=== PATIENT | female | born 1995 | race Caucasian/White ===

== ENCOUNTER 2020-06-25 13:29 | Outpatient (REF) | payer MEDICAID, SELFPAY ==
[2020-06-25 21:03] LABS: HCT 40.4 % (36.0-46.0); HGB 12.6 g/dL (11.2-15.7); MCH 27.4 pg (27.0-33.0); MCHC 31.2 % (32.0-36.0); MCV 87.8 fL (80-95); MPV 11.8 fL (8.0-11.0); Platelet Count 277 10^3/uL (130-400); RDW 14.2 % (11.7-14.6); RDW-SD 45.8 fL; WBC 6.04 10^3/uL (4.4-10.8)
[2020-06-25 21:54] LABS: Anion Gap 6.9 mmol/L (3-11); BUN 13 mg/dL (7-18); CO2 27.1 mmol/L (21.0-32.0); CREATININE 0.76 mg/dL (0.55-1.02); Calcium 9.1 mg/dL (8.5-10.1); Chloride 106 mmol/L (98-107); Glucose 93 mg/dL (74-106); Potassium 4.4 mmol/L (3.5-5.1); Sodium 140 mmol/L (136-145)
[2020-06-25 21:57] LABS: ESR 17 mm/hr (0-20)
[2020-06-25 22:42] LABS: C-Reactive Protein 0.57 mg/dL (0.0-0.3)
[2020-06-27 16:41] LABS: Rheumatoid Factor <8.6 IU/mL (<12.0)
[2020-06-28 11:03] LABS: Lyme Ab w Rflx to Lyme Confirm Negative (Negative)
[2020-06-28 14:06] LABS: ANA Interpretation Negative (Negative)
== END 2020-06-25 13:49 ==
LOC: NCHCN 13:29
PROVIDERS: PCP Nurse Practitioner Family; Visit Provider Nurse Practitioner Family
DX: M79.18 Myalgia, other site (principal); G25.81 Restless legs syndrome; M25.69 Stiffness of other specified joint, not elsewhere classified
CPT/HCPCS: 80048; 85027; 85652; 86038; 86140; 86431; 86618

== ENCOUNTER 2020-12-29 17:57 | Outpatient (REF) | payer MEDICAID, SELFPAY ==
[2020-12-29 21:45] LABS: HCT 37.9 % (36.0-46.0); HGB 12.2 g/dL (11.2-15.7); MCH 27.5 pg (27.0-33.0); MCHC 32.2 % (32.0-36.0); MCV 85.6 fL (80-95); MPV 11.8 fL (8.0-11.0); Platelet Count 271 10^3/uL (130-400); RBC 4.43 10^6/uL (3.93-5.22); RDW 13.6 % (11.7-14.6); RDW-SD 42.8 fL; WBC 7.29 10^3/uL (4.4-10.8)
[2020-12-29 22:24] LABS: Anion Gap 11.4 mmol/L (3-11); BUN 16 mg/dL (7-18); CO2 24.6 mmol/L (21.0-32.0); CREATININE 0.8 mg/dL (0.55-1.02); Calcium 8.6 mg/dL (8.5-10.1); Chloride 107 mmol/L (98-107); Glucose 82 mg/dL (74-106); Sodium 143 mmol/L (136-145); TSH (W/Ref FT4) 1.32 uIU/mL (0.36-3.74)
== END 2020-12-29 17:58 | disposition home or self-care (01) ==
LOC: NCHCN 17:57
PROVIDERS: PCP Nurse Practitioner Family; Visit Provider Nurse Practitioner Family
DX: R00.2 Palpitations (principal)
CPT/HCPCS: 80048; 85027; 84443

== ENCOUNTER 2021-02-14 01:16 | Outpatient (CLI) | payer MEDICAID, SELFPAY ==
--- NOTE | 2021-02-14 | DI.US_ITS ---
Exam(s) US SOFT TISSUE HEAD OR NECK EXAM: US SOFT TISSUE HEAD OR NECK CLINICAL HISTORY: CERVICAL LYMPHADENOPATHY,R59.0,SWALLOWING PROBLEM,R13.10. TECHNIQUE: Ultrasound was performed using standard protocol. COMPARISON: US RENAL ULTRASOUND from 05/22/2013 FINDINGS: Sonographic assessment utilizing grayscale and color Doppler imaging was performed and targeted to th e area of clinical concern. Area of concern is in the left side of the neck where there is apparently an area of pain. There is no evidence of solid or significant cystic lesions in the soft tissues left side of the neck where this patient is apparently complaining of pain. Incidentally noted are multiple small benign colloid cysts in both thyroid lobes. IMPRESSION: 1. No significant mass nor fluid collection in the left side of the neck which is apparently the area of concern. 2. Incidentally noted are multiple small benign colloid cysts in both thyroid lobes. DATA REPOSITORY:
== END 2021-02-14 01:36 ==
PROVIDERS: PCP Nurse Practitioner Family; Visit Provider Nurse Practitioner Family
DX: R59.0 Localized enlarged lymph nodes (principal); R13.19 Other dysphagia; E04.1 Nontoxic single thyroid nodule
CPT/HCPCS: 76536

== ENCOUNTER 2021-02-22 22:05 | Outpatient (REF) | payer MEDICAID, SELFPAY ==
[2021-02-22 22:26] LABS: FREE T4 0.82 ng/dL (0.76-1.46)
[2021-02-25 09:58] LABS: DHEA Sulfate 193 ug/dL (96-512)
[2021-02-26 14:50] LABS: Testosterone, Total 17 ng/dL (8-60)
== END 2021-02-22 22:06 | disposition home or self-care (01) ==
LOC: NCHCN 22:05
PROVIDERS: PCP Nurse Practitioner Family; Visit Provider Nurse Practitioner Family
DX: L65.9 Nonscarring hair loss, unspecified (principal)
CPT/HCPCS: 82627; 84403; 84439; 84481

== ENCOUNTER 2022-08-30 09:26 | Outpatient (REF) | payer MEDICAID, SELFPAY ==
[2022-08-29 21:29] LABS: Abs Immature Grans 0.02 10^3/uL (0.0-0.06); Absolute Basophil Count 0.02 10^3/uL (0.0-0.2); Absolute Eosinophil Count 0.08 10^3/uL (0.0-0.7); Absolute Lymphocyte Count 2.61 10^3/uL (1.2-3.4); Absolute Monocyte Count 0.37 10^3/uL (0.1-0.8); Absolute Neutrophil Count 4.57 10^3/uL (1.2-6.7); Basophils % 0.3; HCT 39.1 % (36.0-46.0); HGB 12.2 g/dL (11.2-15.7); Immature Grans % 0.3; MCH 26.7 pg (27.0-33.0); MCHC 31.2 % (32.0-36.0); MCV 86 fL (80-95); MPV 11.5 fL (8.0-11.0); Monocytes % 4.8; Neutrophils % 59.6; Platelet Count 328 10^3/uL (130-400); RBC 4.57 10^6/uL (3.93-5.22); RDW 13.7 % (11.7-14.6); RDW-SD 42.3 fL; WBC 7.67 10^3/uL (4.4-10.8)
[2022-08-29 21:37] LABS: Iron 70 ug/dL (50-170); Total Iron Binding Capacity 342 ug/dL (250-450); Transferrin Sat 20 % (15-50)
[2022-08-29 22:04] LABS: Ferritin 65 ng/mL (8-252); TSH (W/Ref FT4) 0.74 uIU/mL (0.36-3.74); Vitamin B12 396 pg/mL (193-986)
== END 2022-08-30 09:27 | disposition home or self-care (01) ==
LOC: NCHCN 09:26
PROVIDERS: Visit Provider Nurse Practitioner Family
DX: R51.9 Headache, unspecified (principal); R53.83 Other fatigue; R00.2 Palpitations; M79.7 Fibromyalgia; M25.59 Pain in other specified joint; G25.81 Restless legs syndrome; M54.6 Pain in thoracic spine; R71.8 Other abnormality of red blood cells
CPT/HCPCS: 82607; 82728; 83540; 83550; 84443; 85025

== ENCOUNTER → 2023-04-10 03:14 | Outpatient (CLI) | payer OTHER, SELFPAY ==
--- NOTE | 2023-04-10 | DI.MRI_ITS ---
Exam(s) MR CERVICAL SPINE WO EXAM: MR CERVICAL SPINE WO CLINICAL HISTORY: CHRONIC BACK PAIN, M54.9, SCOLIOSIS, M41.9 TECHNIQUE: Multiplanar multisequence MRI of the cervical spine was performed without intravenous con trast. COMPARISON: No exams were available for comparison FINDINGS: BONES: Vertebral body heights are maintained. The vertebral bodies have a normal appearance. Interv ertebral disc spaces are normal. There is a mild right convex curvature of the cervical spine. There is loss of the normal cervical lordosis. Bone marrow signal intensity is within normal limits. Ther e is a hemangioma in the C3 vertebral body. CERVICAL CORD: Craniovertebral junction is unremarkable. The cervical cord is normal size and signal intensity. SOFT TISSUES: Unremarkable. C2-3: No disc herniation or bulge is identified. No significant central spinal canal or neural forami nal stenosis. C3-4: No disc herniation or bulge is identified. No significant central spinal canal or neural forami nal stenosis C4-5: No disc herniation or bulge is identified. No significant central spinal canal or neural forami nal stenosis C5-6: No disc herniation or bulge is identified. No significant central spinal canal or neural forami nal stenosis C6-7: No disc herniation or bulge is identified. No significant central spinal canal or neural forami nal stenosis C7-T1: No disc herniation or bulge is identified. No significant central spinal canal or neural isaias inal stenosis IMPRESSION: 1. Mild right convex curvature of the cervical spine. 2. No focal disc herniation, central spinal canal or neural foraminal stenosis is seen in the cervica l spine. DATA REPOSITORY:
--- NOTE | 2023-04-10 | DI.MRI_ITS ---
Exam(s) MR THORACIC SPINE WO EXAM: MR THORACIC SPINE WO CLINICAL HISTORY: SCOLIOSIS, CHRONIC BACK PAIN, M41.9, M54.9. TECHNIQUE: Multiplanar multisequence MRI of the Thoracic spine was performed. COMPARISON: CR THORACIC SPINE from 02/25/2013 FINDINGS: Bones: The vertebral body heights are well maintained. There is a mild right convex curvature of the midthoracic spine. The signal characteristics are unremarkable. Cord: The thoracic cord is normal size and signal intensity. No intrinsic cord lesion is present. Discs: No disc herniation or bulge is present. Soft tissues: Normal. Disc levels: No disc herniation or bulge is identified. No central spinal canal or neural foraminal stenosis. IMPRESSION: 1. Mild right convex curvature of the midthoracic spine. 2. No focal disc herniation, central spinal canal or neural foraminal stenosis is seen in the thoraci c spine. DATA REPOSITORY:
--- NOTE | 2023-04-10 13:40 | DI.MRI_ITS ---
Exam(s) MR LUMBAR SPINE WO EXAM: MR LUMBAR SPINE WO CLINICAL HISTORY: CHRONIC BACK PAIN, M54.9, SCOLOSIS, M41.9. TECHNIQUE: Multiplanar multisequence MRI of the Lumbar spine was performed. COMPARISON: No exams were available for comparison FINDINGS: Bones: The last intervertebral disc space is designated the L5/S1 level for the numbering purpose of this examination. The vertebral body heights are well maintained. The vertebral body heights have a normal appearance. Alignment is satisfactory. The signal characteristics are unremarkable. Cord: The conus tip ends at the T12-L1 level. It is of normal size and signal intensity. T12-L1: No disc herniations or bulges are present. No central spinal canal or neural foraminal stenos is. L1-2: No disc herniations or bulges are present. No central spinal canal or neural foraminal stenosis . L2-3: No disc herniations or bulges are present. No central spinal canal or neural foraminal stenosis . L3-4: No disc herniations or bulges are present. No central spinal canal or neural foraminal stenosis . L4-5: No disc herniations or bulges are present. No central spinal canal or neural foraminal stenosis . L5-S1: No disc herniations or bulges are present. No central spinal canal or neural foraminal stenosi s. Soft tissues: The visualized SI joints and sacrum are well maintained. The paraspinal soft tissues ar e unremarkable. IMPRESSION: No focal disc herniation, central spinal canal or neural foraminal stenosis is seen in the lumbar spi ne. DATA REPOSITORY:
== END ==
PROVIDERS: PCP Nurse Practitioner Family; Visit Provider Nurse Practitioner Family
DX: M41.34 Thoracogenic scoliosis, thoracic region (principal); M41.82 Other forms of scoliosis, cervical region
CPT/HCPCS: 72141; 72146; 72148

== ENCOUNTER 2023-05-23 14:43 | Emergency (ER) | payer OTHER, SELFPAY ==
[2023-05-23 14:46] VITALS: BP 160/87; PULSE 91; RESP 18; TEMP 37.1; O2SAT 100
--- NOTE | 2023-05-23 15:39 | ED.GENADUL_ITS ---
Discharge Plan Disposition Patient Disposition: Home Discharge Details Clinical Impression: Headache disorder Primary Care Provider: Ladi Silva ED Provider: Yadira Amezquita Home Meds and New Rx's Prescriptions: Discontinued medroxyprogesterone 150 MG/ML suspension Patient Comments: No taking Medical Decision Making Patient reports that she feels a little bit better. She is much less lightheaded. Half liter of saline has gone in. I did offer her additional medication for her headache but told her this would make her drowsy. She de clined this. We have made a referral to neurology for her persistant HERNANDEZ. Medical Records Medical records reviewed: Yes I reviewed the patient's medical records. HPI General Date/Time Provider Initiated Documentation: 05/23/23 15:11 . Related Data Allergies Allergy/AdvReac Type Severity Reaction Status Date / Time No Known Allergies Allergy Unverified 05/23/23 14:51 General Stated Complaint: Headache BUCKY: 3 PFSH All Active Problems (Updated 05/23/23 @ 16:56 by Yadira Amezquita MD) Headache disorder (Acute) Muscle pain (Acute) Chronic pain (Chronic) Medical History (Updated 05/23/23 @ 16:56 by Yadira Amezquita MD) Ankle pain, right Arthralgia Chronic back pain Fatigue Fibromyalgia Foot pain, left Hair loss Headache Microcytosis Morning stiffness of joints Myalgia Palpitations Restless leg syndrome Scoliosis Swallowing problem Surgical History (Updated 05/15/23 @ 14:34 by Deena Ladd RN) H/O foot surgery Social History Smoking/Tobacco Use Status: Never Smoking risk assessment performed?: Yes Drug use: Never Do you feel safe at home: Yes Do you feel safe in your relationship?: Yes Course Vital Signs Vital signs: Vital Signs Temperature 37.1 C 05/23/23 14:46 Pulse 91 H 05/23/23 14:46 Respiratory Rate 18 05/23/23 14:46 Blood Pressure 160/87 H 05/23/23 14:46 Pulse Oximetry 100 05/23/23 14:46 Temperature 37.1 C 05/23/23 14:46 Pulse 91 H 05/23/23 14:46 Respiratory Rate 18 05/23/23 14:46 Respiratory Effort Normal 05/23/23 14:50 Blood Pressure 160/87 H 05/23/23 14:46 Blood Pressure Position Sitting 05/23/23 14:46 Pulse Oximetry 100 05/23/23 14:46 Oxygen Delivery Method Room Air 05/23/23 14:46 Oxygen Flow Rate 0 05/23/23 14:46 Pain Level 6 05/23/23 15:24
[2023-05-23] MEDS: Ketorolac 15 MG/ML VIAL IVP (15:52)
[2023-05-23] MEDS: Normal Saline 1,000 ML 1000 ML IV (15:52)
[2023-05-23] MEDS: ACETAMINOPHEN 1,000 MG/100 ML BTL 400 MG IVPB (15:55)
[2023-05-23 17:13] VITALS: BP 108/62; PULSE 74; RESP 16; TEMP 37.3; O2SAT 100
== END 2023-05-23 17:15 | disposition home or self-care (01) ==
PROVIDERS: Emergency Provider Emergency Medicine; PCP Nurse Practitioner Family
DX: R51.9 Headache, unspecified (principal); H53.2 Diplopia; R42 Dizziness and giddiness
CPT/HCPCS: 96361; 96374; 96375; 99284; 99283; J0131; J1885; J3490

== ENCOUNTER → 2023-07-10 00:36 | Outpatient (CLI) | payer OTHER, SELFPAY ==
--- NOTE | 2023-07-10 07:00 | DI.MRI_ITS ---
Exam(s) MR BRAIN WO EXAM: MR BRAIN WO CLINICAL HISTORY: ? demyelinating process, mass,DAILY HEADACHE,PARESTHESIAS,R20.2,R51.9 TECHNIQUE: Multiplanar multisequence MRI of the brain was performed. COMPARISON: MR MR CERVICAL SPINE WO from 04/10/2023 FINDINGS: CEREBRAL PARENCHYMA: There is no evidence of intracranial hemorrhage, mass effect, or shift of midline structures. There are no extra-axial fluid collections. Ventricles are not enlarged or shifted. There is no evidence of cerebellar tonsillar ectopia. There is no significant focal signal abnormality in the cerebellar hemispheres. There is no abnormal signal abnormality in the periventricular white matter and corpus callosum. However, on the axial FLAIR sequence there is a small focus of signal abnormality at the pontomedulla ry junction midline, without corresponding T2 sequence signal abnormality nor abnormal signal on T1 i mages. This measures approximately 3 mm. There is, however, a very subtle focus of restricted diffu sae at this level on DWI imaging. PITUITARY GLAND: No mass nor parasellar abnormality. No obvious abnormality in the cavernous sinuses. FLOW VOIDS: The expected flow void are noted. No evidence of obvious aneurysm nor obvious vascular ma lformation. PARANASAL SINUSES: The visualized paranasal sinuses appear unremarkable. No obvious finding ORBITS: No obvious findings. No obvious signal abnormality in the optic nerves. IMPRESSION: 1. No evidence of typical demyelinating disease pattern in the [place] in supra ventricular white matter , and I note that there is no evidence of demyelination in the cervical spinal cord on recent MRI sca n of 04/10/2023. 2. There is a solitary focus of subtle FLAIR bright signal abnormality in the lower celeste at the ponto medullary junction as described above. There is a corresponding very subtle focus of signal abnormal ity on diffusion imaging at this level. There is no evidence of a hemorrhage nor surrounding edema. As the next step I recommend a contrast infused MRI. At that time a sagittal FLAIR sequence should also be performed to determine if this finding is also visible in the sagittal plane. DATA REPOSITORY:
== END ==
PROVIDERS: PCP Nurse Practitioner Family; Visit Provider Nurse Practitioner Adult Health
DX: R20.2 Paresthesia of skin (principal); R51.9 Headache, unspecified; R94.02 Abnormal brain scan
CPT/HCPCS: 70551

== ENCOUNTER → 2023-07-25 02:39 | Outpatient (CLI) | payer OTHER, SELFPAY ==
[2023-07-25] MEDS: Gadoterate meglumine 20 ML SYRINGE 16 ML IVP (10:30)
--- NOTE | 2023-07-25 10:30 | DI.MRI_ITS ---
Exam(s) MR BRAIN W EXAM: MR BRAIN W CLINICAL HISTORY: ? brainstem lesion,f/u abnl mri,r93.0. TECHNIQUE: T1 and FLAIR sagittal and postcontrast T1 axial, coronal and sagittal sequences were perf ormed. CONTRAST MATERIAL: IV Contrast: 16 ML of Dotarem contrast administered. COMPARISON: MR MR BRAIN WO from 07/10/2023 FINDINGS: VENTRICLES AND EXTRA AXIAL SPACES: Normal in size and morphology for the patient's age. HEMORRHAGE: None. CEREBRAL PARENCHYMA: No focus of restricted diffusion to suggest acute infarct. No space-occupying le sae identified. The previously noted small focus of high signal at the pontomedullary junction is n ot seen on the repeat axial FLAIR and sagittal FLAIR sequences. There is no abnormal enhancement in this region or elsewhere in the brain.. MIDLINE SHIFT: None. BRAINSTEM/CEREBELLUM: Normal. CALVARIUM: Normal. VISUALIZED PARANASAL SINUSES/MASTOIDS: Clear. IMPRESSION: Normal MRI of the brain. DATA REPOSITORY:
== END ==
PROVIDERS: PCP Nurse Practitioner Family; Visit Provider Psychiatry & Neurology Neurology
DX: R93.0 Abnormal findings on diagnostic imaging of skull and head, not elsewhere classified (principal)
CPT/HCPCS: 70552

== ENCOUNTER 2023-12-15 09:20 | Emergency (ER) | payer OTHER, SELFPAY ==
[2023-12-15 09:41] VITALS: BP 113/77; PULSE 84; RESP 14; TEMP 37; O2SAT 98
--- NOTE | 2023-12-15 09:45 | DI.RAD_ITS ---
Exam(s) XR SHOULDER RT COMPLETE 2+V EXAM: XR SHOULDER RT COMPLETE 2+V CLINICAL HISTORY: SHOULDER PAIN. TECHNIQUE: 2D digital imaging was performed of the right shoulder. Seven images were obtained. AP, Grashey, Y-view and axillary views were obtained. COMPARISON: No exams were available for comparison FINDINGS: BONES: No acute fracture is present. No bony destructive lesion is seen. JOINTS: No dislocation present. SOFT TISSUE: Normal. IMPRESSION: Unremarkable radiographs of the right shoulder. DATA REPOSITORY: RADIATION DOSE DELIVERED:
--- NOTE | 2023-12-15 11:03 | DI.VRAD_ITS ---
PROCEDURE INFORMATION: Exam: XR Right Shoulder Exam date and time: 12/15/2023 10:25 AM Age: 27 years old Clinical indication: Pain; Shoulder; Right TECHNIQUE: Imaging protocol: Radiologic exam of the right shoulder. Views: 2 or more views. COMPARISON: No relevant prior studies available. FINDINGS: Bones/joints: Normal mineralization. The joint spaces are preserved. No erosions or osteophytes. Soft tissues: Unremarkable. IMPRESSION: Unremarkable examination. Dictated and Authenticated by: Kevin Hull MD. Ordering:GENNY Orozco MD
--- NOTE | 2023-12-15 13:05 | ED.GENADUL_ITS ---
Discharge Plan Disposition Patient Disposition: Home Condition: Stable Discharge Details Clinical Impression: Shoulder sprain Primary Care Provider: Ladi Silva ED Provider: Lori Taylor Home Meds and New Rx's Prescriptions: No Action ibuprofen 200 mg capsule 600 mg PO Q6H PRN penicillin V potassium 500 mg tablet 500 mg PO BID Qty: 20 0RF sumatriptan succinate 100 mg tablet See Rx Instructions PO .COMPLEX Qty: 14 3RF Rx Instructions: take 1 tab at onset of headache; if no relief, may repeat 1 tab after at least 2 hrs; max = 2 tabs/24 hrs PO Discharge Instructions Instructions: Shoulder Sprain (ED) Additional Instructions: No evidence of bony abnormality on X-ray images, suspect Sprain. Please take Tylenol or Ibuprofen with food every 4-6 hours as needed for pain and swelling. Alternate ice and heat. Follow up with primary care provider in 3-5 days. Return to ED sooner if any worsening or concerns. Referrals: Judd Nance MD [ [facility] STAFF PHYSICIAN] - 1 week Ladi Silva [Primary Care Provider] - 2 weeks Discharge Data Discharge Date/Time-TO BE ENTERED AT DEPARTURE: 12/15/23 13:19 HPI General Mode of arrival: ambulatory . Date/Time Provider Initiated Documentation: 12/15/23 09:48 . Limitations to Documentation: no limitations . Information obtained by: patient, RN notes reviewed and old records reviewed . HPI Narrative: 27 year old female here with right shoulder pain after rolling over in bed and feeling a sharp pain. She reports that now she has tenderness when she abducts her arm and any movement. No pain when it is still at her side. No obvious deformity. No pain with palpation. X-rays are within normal limits. She did take an analgesic prior to arrival. Distal CMS is intact. No other associated symptoms or concerns. Past medical history does include scoliosis restless leg syndrome, myalgias fibromyalgia palpitations fatigue headache. Related Data Home Medications Medication Instructions Recorded Confirmed ibuprofen 200 mg capsule 600 mg PO Q6H PRN 06/14/23 10/09/23 sumatriptan succinate 100 mg tablet See Rx Instructions PO .COMPLEX 06/19/23 10/09/23 #14 tabs penicillin V potassium 500 mg 500 mg PO BID #20 tabs 10/09/23 10/09/23 tablet Previous Rx's Medication Instructions Recorded sumatriptan succinate 100 mg tablet See Rx Instructions PO .COMPLEX 06/19/23 #14 tabs penicillin V potassium 500 mg 500 mg PO BID #20 tabs 10/09/23 tablet Allergies Allergy/AdvReac Type Severity Reaction Status Date / Time No Known Allergies Allergy Unverified 12/15/23 09:46 General Stated Complaint: Orthopedic BUCKY: 4 Review of Systems All systems reviewed & are unremarkable except as noted in HPI and below Musculoskeletal Musculoskeletal: Reports as per HPI and Reports arthralgias Exam Narrative Exam Narrative: Constitutional: Alert and oriented x3. Appears stated age. Normal body habitus. Head: Normocephalic, no trauma. Eyes: Pupils PERRL, Red reflex noted, EOM's intact. Eyelids symmetrical without lesions, discharge, or swelling. Chest: RRR, Normal S1, S2, distal pulses intact. Resp: Lungs clear to auscultation bilaterally, no wheezes, rales, or rhonchi. Abdomen: Soft, non-distended, Normoactive bowel sounds all 4 quads. Musculoskeletal: Normal gait, Skin: No suspicious rashes or lesions. Capillary refill less than 2 sec. Neurologic: Cranial nerves II-XII intact. Alert and oriented x 3. Motor: No deficits noted. Sensory: Intact bilaterally all 4 extremities. Hematologic/Lymphatic: No ecchymosis, no lymphadenopathy. Course Vital Signs Vital signs: Vital Signs Temperature 37.0 C 12/15/23 09:41 Pulse 84 12/15/23 09:41 Respiratory Rate 14 12/15/23 09:41 Blood Pressure 113/77 12/15/23 09:41 Pulse Oximetry 98 12/15/23 09:41 Temperature 37.0 C 12/15/23 09:41 Temperature Source Skin 12/15/23 09:41 Pulse 84 12/15/23 09:41 Respiratory Rate 14 12/15/23 09:41 Blood Pressure 113/77 12/15/23 09:41 Blood Pressure Position Sitting 12/15/23 09:41 Pulse Oximetry 98 12/15/23 09:41 Oxygen Delivery Method Room Air 12/15/23 09:41 Oxygen Flow Rate 0 12/15/23 09:41 Pain Level 8 12/15/23 09:41 Comment pain increases with movement 12/15/23 09:41 Lab/Test Results Lab/Test Results: POC- Test(urine) Negative Medical Decision Making 27 year old female here with right shoulder pain after rolling over in bed and feeling a sharp pain. She reports that now she has tenderness when she abducts her arm and any movement. No pain when it is still at her side. No obvious deformity. No pain with palpation. X-rays are within normal limits. She did take an analgesic prior to arrival. Distal CMS is intact. No other associated symptoms or concerns. Past medical history does include scoliosis restless leg syndrome, myalgias fibromyalgia palpitations fatigue headache. Discussed x-ray results with patient and home care she verbalized understanding. Instructed to follow-up as needed. This text was generated using [employer] system, please disregard any oddities of phrase or misspellings. Quality:SDOH Health Related Social Needs: No Data to Display PFSH All Active Problems Shoulder sprain (Acute) Abnormal MRI of head (Acute) Visual changes (Acute) Migraine headache without aura (Acute) Daily headache (Acute) Paresthesias (Acute) Muscle pain (Acute) Chronic pain (Chronic) Medical History Chronic back pain Scoliosis Restless leg syndrome Foot pain, left Ankle pain, right Arthralgia Myalgia Morning stiffness of joints Fibromyalgia Palpitations Swallowing problem Hair loss Fatigue Headache Microcytosis Surgical History H/O foot surgery Social History Smoking/Tobacco Use Status: Never Smoking risk assessment performed?: Yes Drug use: Never Do you feel safe at home: Yes Do you feel safe in your relationship?: Yes
== END 2023-12-15 13:19 | disposition home or self-care (01) ==
PROVIDERS: Emergency Provider Registered Nurse Emergency; PCP Nurse Practitioner Family
DX: S43.401A Unspecified sprain of right shoulder joint, initial encounter (principal); X58.XXXA Exposure to other specified factors, initial encounter
CPT/HCPCS: 99283; 73030

== ENCOUNTER 2024-01-18 13:51 | Emergency (ER) | payer OTHER, SELFPAY ==
--- NOTE | 2024-01-18 13:45 | RT.EKG_ITS ---
APPROVED REPORT Exam: Resting ECG Reason for Exam: chest pain Patient Location: E HR:89 bpm ECG Measurements Heart Rate 89 AXIS UT 152 P 75 QRSd 72 QRS 37 QT 337 T 24 QTc 406 Conclusion Sinus rhythm...normal P axis, V-rate 60- 99 Atrial premature complex...SV complex w/ short R-R interval
[2024-01-18 13:56] VITALS: BP 164/104; PULSE 97; RESP 16; TEMP 37; O2SAT 97
--- NOTE | 2024-01-18 14:00 | DI.RAD_ITS ---
Exam(s) XR CHEST 2V PA LATERAL EXAM: XR CHEST 2V PA LATERAL CLINICAL HISTORY: chest pain TECHNIQUE: 2D digital imaging was performed of the chest. Two images were obtained. PA and lateral views were obtained. COMPARISON: CR LEFT RIBS TO INCLUDE CXR from 03/02/2014 FINDINGS: MEDIASTINUM: Normal. HEART: Normal. PULMONARY VASCULATURE: Normal. LUNGS: Clear. PLEURAL SPACE: No pleural effusion or pneumothorax. BONE:Within normal limits for the patient's age. OTHER FINDINGS:Normal. IMPRESSION: No acute pulmonary findings. DATA REPOSITORY: RADIATION DOSE DELIVERED:
[2024-01-18 14:04] VITALS: RESP 20
[2024-01-18 14:31] LABS: Abs Immature Grans 0.04 10^3/uL (0.0-0.06); Absolute Basophil Count 0.01 10^3/uL (0.0-0.2); Absolute Eosinophil Count 0.11 10^3/uL (0.0-0.7); Absolute Lymphocyte Count 2.38 10^3/uL (1.2-3.4); Absolute Monocyte Count 0.36 10^3/uL (0.1-0.8); Absolute Neutrophil Count 5.31 10^3/uL (1.2-6.7); Basophils % 0.1 %; Eosinophils % 1.3 %; HCT 42.2 % (36.0-46.0); HGB 13.2 g/dL (11.2-15.7); Immature Grans % 0.5 %; MCH 26.5 pg (27.0-33.0); MCHC 31.3 % (32.0-36.0); MCV 85 fL (80-95); MPV 10.9 fL (8.0-11.0); Monocytes % 4.4 %; Neutrophils % 64.7 %; Platelet Count 313 10^3/uL (130-400); RBC 4.99 10^6/uL (3.93-5.22); RDW-SD 43.3 fL; WBC 8.21 10^3/uL (4.4-10.8)
[2024-01-18 14:47] LABS: ALT 23 U/L (14-59); AST 10 U/L (15-37); Albumin 4.3 g/dL (3.4-5.0); Alkaline Phosphatase 95 U/L (46-116); Anion Gap 11.1 mmol/L (3-11); BUN 10 mg/dL (7-18); Bilirubin, Total 0.2 mg/dL (0.2-1.0); CO2 26.9 mmol/L (21.0-32.0); CREATININE 1.1 mg/dL (0.55-1.02); Calcium 9.2 mg/dL (8.5-10.1); Chloride 103 mmol/L (98-107); Estimated GFR 70.19 (mL/min/1.73m2); Glucose 115 mg/dL (74-106); Lipase 46 U/L (16-77); Potassium 3.3 mmol/L (3.5-5.1); Sodium 141 mmol/L (136-145); Total Protein 8.4 g/dL (6.4-8.2)
[2024-01-18 14:49] LABS: Troponin I < 50 ng/L (< or =60)
[2024-01-18 14:54] LABS: HCG Qual (Serum) Negative
[2024-01-18 15:05] LABS: D-Dimer 253 ng/mlFEU (<500)
[2024-01-18 15:07] VITALS: PULSE 78; RESP 0
[2024-01-18 15:08] VITALS: BP 139/54; PULSE 79; O2SAT 100
[2024-01-18 15:10] VITALS: PULSE 77; O2SAT 100
[2024-01-18 15:20] VITALS: PULSE 86; O2SAT 99
[2024-01-18] MEDS: Ketorolac 15 MG/ML VIAL 7.5 MG IVP (15:22)
--- NOTE | 2024-01-18 15:30 | ED.GENADUL_ITS ---
Discharge Plan Disposition Patient Disposition: Home Condition: Stable Discharge Details Clinical Impression: Acute chest wall pain Primary Care Provider: Ladi Silva ED Provider: Pham Mcneil Home Meds and New Rx's Prescriptions: New cyclobenzaprine 10 mg tablet 10 mg PO TID PRNQty: 10 0RF Continued ibuprofen 200 mg capsule 600 mg PO Q6H PRN sumatriptan succinate 100 mg tablet See Rx Instructions PO .COMPLEX Qty: 14 3RF Rx Instructions: take 1 tab at onset of headache; if no relief, may repeat 1 tab after at least 2 hrs; max = 2 tabs/24 hrs PO Discharge Instructions Instructions: Chest Wall Pain (ED) Additional Instructions: Take ibuprofen 600 mg every 8 hours with food for the next 5 days Take Flexeril as needed for musculoskeletal pain, this can make you tired and you should not combine with driving or alcohol Please be reevaluated by her primary care physician in 3-5 days for reassessment Please return earlier should you have new or worsening complaints Referrals: Ladi Silva [Primary Care Provider] - 3 days HPI General Date/Time Provider Initiated Documentation: 01/18/24 13:52 . HPI Narrative: This otherwise healthy 28-year-old female presents with left-sided chest pain intermittently for the past week. Denies any fever or chills. Denies any cough or upper respiratory symptoms. Denies any shortness of breath. Denies any chance of , recent flights, surgeries, long drives. Denies any unilateral leg pain or swelling. Denies known exacerbating or alleviating factors. Related Data Home Medications Medication Instructions Recorded Confirmed ibuprofen 200 mg capsule 600 mg PO Q6H PRN 06/14/23 01/18/24 sumatriptan succinate 100 mg tablet See Rx Instructions PO .COMPLEX 06/19/23 01/18/24 #14 tabs cyclobenzaprine 10 mg tablet 10 mg PO TID PRN #10 tabs 01/18/24 Previous Rx's Medication Instructions Recorded sumatriptan succinate 100 mg tablet See Rx Instructions PO .COMPLEX 06/19/23 #14 tabs cyclobenzaprine 10 mg tablet 10 mg PO TID PRN #10 tabs 01/18/24 Allergies Allergy/AdvReac Type Severity Reaction Status Date / Time No Known Allergies Allergy Unverified 01/18/24 13:55 General Stated Complaint: Chest Pain BUCKY: 3 Exam Narrative Exam Narrative: 28-year-old female, alert and oriented, no acute distress, reproducible left- sided chest wall tenderness no rashes or lesions, vascularly intact to bilateral upper and lower extremities, no abdominal tenderness no pallor, alert and oriented x 4 no Kesling or tenderness appreciated bilaterally Course Vital Signs Vital signs: Vital Signs Temperature 37.0 C 01/18/24 13:56 Pulse 97 H 01/18/24 13:56 Respiratory Rate 16 01/18/24 13:56 Blood Pressure 164/104 H 01/18/24 13:56 Pulse Oximetry 97 01/18/24 13:56 Temperature 37.0 C 01/18/24 13:56 Temperature Source Temporal Artery Scan 01/18/24 13:56 Pulse 79 01/18/24 15:08 Pulse 86 01/18/24 15:20 Respiratory Rate 0 L 01/18/24 15:07 Respiratory Effort Normal, Short of Breath 01/18/24 14:04 Respiratory Depth Normal 01/18/24 14:04 Respiratory Pattern Normal 01/18/24 14:04 Blood Pressure 139/54 L 01/18/24 15:08 Blood Pressure Mean 76 01/18/24 15:08 Blood Pressure Position Sitting 01/18/24 13:56 Pulse Oximetry 99 01/18/24 15:20 Oxygen Delivery Method Room Air 01/18/24 13:56 Oxygen Flow Rate 0 01/18/24 13:56 Pain Level 7 01/18/24 15:22 Lab/Test Results Lab/Test Results: Laboratory Tests Range/Units 01/18/24 14:20 WBC (4.4-10.8) 10^3/uL 8.21 RBC (3.93-5.22) 10^6/uL 4.99 Hgb (11.2-15.7) g/dL 13.2 Hct (36.0-46.0) % 42.2 MCV (80-95) fL 85 MCH (27.0-33.0) pg 26.5 L MCHC (32.0-36.0) % 31.3 L RDW (11.7-14.6) % 14.0 Plt Count (130-400) 10^3/uL 313 MPV (8.0-11.0) fL 10.9 Immature Gran % % 0.5 Neutrophils % % 64.7 Lymphocytes % % 29.0 Monocytes % % 4.4 Eosinophils % % 1.3 Basophils % % 0.1 Nucleated RBC % (0.0-0.3) % 0.0 Absolute Neutrophils (1.2-6.7) 10^3/uL 5.31 Absolute Lymphocytes (1.2-3.4) 10^3/uL 2.38 Absolute Monocytes (0.1-0.8) 10^3/uL 0.36 Absolute Eosinophils (0.0-0.7) 10^3/uL 0.11 Absolute Basophils (0.0-0.2) 10^3/uL 0.01 D-Dimer (<500) ng/mlFEU 253 Sodium (136-145) mmol/L 141 Potassium (3.5-5.1) mmol/L 3.3 L Chloride (98-107) mmol/L 103 Carbon Dioxide (21.0-32.0) mmol/L 26.9 Anion Gap (3-11) mmol/L 11.1 H BUN (7-18) mg/dL 10 Creatinine (0.55-1.02) mg/dL 1.1 H Est GFR (CKD-EPI 2020) (mL/min/1.73m2) 70.19 Glucose (74-106) mg/dL 115 H Calcium (8.5-10.1) mg/dL 9.2 Total Bilirubin (0.2-1.0) mg/dL 0.2 AST (15-37) U/L 10 L ALT (14-59) U/L 23 Alkaline Phosphatase (46-116) U/L 95 Troponin I (< or =60) ng/L < 50 Total Protein (6.4-8.2) g/dL 8.4 H Albumin (3.4-5.0) g/dL 4.3 Lipase (16-77) U/L 46 Serum HCG, Qual Negative Medical Decision Making 28-year-old female presenting with report of chest pain for the past week intermittently. Describes the pain as sharp. On exam it is reproducible. Troponin and D-dimer negative, she has had the pain for approximately a week so I think 1 troponin is reasonable, D-dimer is negative and patient is PERC negative so I think this is reassuring. EKG without evidence of obvious ischemi a, please see attendings documentation. Negative test, chest x-ray without any acute finding per radiology interpretation my review. Patient is in no acute distress, and there is no clinical evidence of pericarditis. Motrin 600 mg every 8 hours with food, Flexeril as needed for intermittent pain recommended. Recheck with primary care physician next week and earlier return precautions reviewed and patient expressed understanding. My suspicion that this is cardiac in nature is quite low as patient is otherwise healthy and diagnostic exam and laboratory evaluation reassuring Quality:SDOH Health Related Social Needs: No Data to Display PFSH All Active Problems (Updated 01/18/24 @ 15:22 by BRAULIO Lugo) Acute chest wall pain (Acute) Abnormal MRI of head (Acute) Visual changes (Acute) Migraine headache without aura (Acute) Daily headache (Acute) Paresthesias (Acute) Muscle pain (Acute) Chronic pain (Chronic) Medical History Chronic back pain Scoliosis Restless leg syndrome Foot pain, left Ankle pain, right Arthralgia Myalgia Morning stiffness of joints Fibromyalgia Palpitations Swallowing problem Hair loss Fatigue Headache Microcytosis Surgical History H/O foot surgery Social History Smoking/Tobacco Use Status: Never Smoking risk assessment performed?: Yes Drug use: Never Do you feel safe at home: Yes Do you feel safe in your relationship?: Yes
== END 2024-01-18 15:34 | disposition home or self-care (01) ==
PROVIDERS: Emergency Provider Physician Assistant; PCP Nurse Practitioner Family
DX: R07.89 Other chest pain (principal)
CPT/HCPCS: 36415; 80053; 83690; 93005; 96374; 99284; 71046; 84484; 84703; 85025; 85379; 93010; 99283; J1885

== ENCOUNTER 2024-01-23 11:35 | Outpatient (REF) | payer OTHER, SELFPAY ==
[2024-01-23 15:18] LABS: ALT 20 U/L (14-59); AST 9 U/L (15-37); Albumin 4.2 g/dL (3.4-5.0); Alkaline Phosphatase 84 U/L (46-116); Anion Gap 4.8 mmol/L (3-11); BUN 10 mg/dL (7-18); Bilirubin, Total 0.3 mg/dL (0.2-1.0); CO2 30.2 mmol/L (21.0-32.0); CREATININE 0.7 mg/dL (0.55-1.02); Calcium 9.2 mg/dL (8.5-10.1); Chloride 105 mmol/L (98-107); Estimated GFR 120.74 (mL/min/1.73m2); Ferritin 37 ng/mL (8-252); Glucose 93 mg/dL (74-106); Potassium 4.6 mmol/L (3.5-5.1); Sodium 140 mmol/L (136-145); TSH (W/Ref FT4) 1.32 uIU/mL (0.36-3.74); Total Protein 7.7 g/dL (6.4-8.2)
[2024-01-23 15:54] LABS: Iron 79 ug/dL (50-170); Total Iron Binding Capacity 360 ug/dL (250-450); Transferrin Sat 22 % (15-50)
== END 2024-01-23 11:36 | disposition home or self-care (01) ==
LOC: NCHCN 11:35
PROVIDERS: PCP Nurse Practitioner Family; Visit Provider Nurse Practitioner Family
DX: R06.00 Dyspnea, unspecified (principal)
CPT/HCPCS: 80053; 82728; 83540; 83550; 84443

== ENCOUNTER 2024-11-05 03:39 | Outpatient (CLI) | payer OTHER, SELFPAY ==
[2024-11-05 09:32] LABS: Glucose 90 mg/dL (74-106)
[2024-11-05 09:37] LABS: Calculated LDL 128 mg/dL (<100); Cholesterol 181 mg/dL (<200); HDL Cholesterol 41 mg/dL (>or=50); Triglyceride 64 mg/dL (<150)
== END 2024-11-05 03:40 | disposition home or self-care (01) ==
LOC: LBO 03:40
PROVIDERS: PCP Nurse Practitioner Family; Visit Provider Nurse Practitioner Family
DX: Z00.00 Encounter for general adult medical examination without abnormal findings (principal)
CPT/HCPCS: 36415; 80061; 82947

== ENCOUNTER 2024-11-14 15:46 | Outpatient (CLI) | payer OTHER, SELFPAY ==
--- NOTE | 2024-11-14 15:15 | DI.RAD_ITS ---
Exam(s) XR WRIST LT COMPLETE EXAM: XR WRIST LT COMPLETE CLINICAL HISTORY: left wrist pain M25.532. TECHNIQUE: 2D digital imaging was performed. COMPARISON: No exams were available for comparison FINDINGS: 3 views No evidence of fracture nor dislocation nor significant ulnar variance. Bone density normal. No oss eous lesions. Scaphoid and scapholunate distance are normal. No degenerative changes nor erosions. IMPRESSION: No acute osseous findings in the left wrist. DATA REPOSITORY: RADIATION DOSE DELIVERED:
== END 2024-11-14 16:06 ==
LOC: DI 15:46
PROVIDERS: PCP Nurse Practitioner Family; Visit Provider Nurse Practitioner Family
DX: M25.532 Pain in left wrist (principal)
CPT/HCPCS: 73110

== ENCOUNTER 2025-01-29 02:46 | Outpatient (CLI) | payer OTHER, SELFPAY ==
--- NOTE | 2025-01-29 06:45 | DI.MRI_ITS ---
Exam(s) MR UPPER JOINT LT WO EXAM: MR UPPER JOINT LT WO CLINICAL HISTORY: lt wrist pain, m25.532. TECHNIQUE: Multiplanar multisequence MRI was performed. COMPARISON: None. FINDINGS: BONES: There is no fracture nor bone contusion. No evidence of avascular necrosis. JOINTS: The radiocarpal joint is unremarkable. The carpal joints are unremarkable. Scapholunate dis tance is normal. There is a well-defined fluid collection on the dorsal aspect of the wrist dorsal to the scaphoid-elena icular bone measuring 1.5 cm wide x 1.3 cm longitudinal x 0.4 cm maximum thickness and having the ronald earance of a para-articular ganglia on cyst. In addition, there is mild tenosynovitis of the overlyi ng extensor carpi radialis longus and brevis. Also very mild relatively focal tenosynovitis of the a djacent extensor pollicis longus tendon. On the volar-lateral aspect of the wrist there is also a small non septated fluid collection measurin g 0.8 cm wide by 0.7 cm long by 0.3 cm thick. This is consistent with a smaller para-articular gangl ion cyst. On the volar-medial aspect the wrist there is another similar non septated collection measuring 0.5 c m wide by 1.1 cm long by 0.3 cm maximum thickness. Also consistent with a small para-articular gangl ion cyst TENDONS: Flexors: Unremarkable. No tears nor tenosynovitis. Extensors: Unremarkable. No tears or tenosynovitis. Carpal tunnel:Unremarkable MUSCLES: Unremarkable. MEDIAN NERVE: Unremarkable on this noncontrast examination. SOFT TISSUES: Unremarkable. LIGAMENTS: Scapholunate ligament is intact. Lunotriquetral ligament intact. TRIANGULAR FIBROCARTILAGE: Unremarkable. OTHER: IMPRESSION: 1. No abnormal marrow signal in the carpal row bones. 2. Three non septated fluid collections consistent with probable para-articular ganglion cysts. The largest of these is located dorsal to the scaphoid-navicular bone and measures 15 x 13 by 4 mm. 3. Just dorsal to this finding is mild relatively focal tenosynovitis of the extensor carpi radialis longus and brevis tendons as well as the adjacent extensor or pollicis longus. There is no tendiniti s signal and there are no actual tendon tears. DATA REPOSITORY:
== END 2025-01-29 03:06 ==
LOC: DI 02:46
PROVIDERS: PCP Nurse Practitioner Family; Visit Provider Student in an Organized Health Care Education/Training Program
DX: M25.532 Pain in left wrist (principal)
CPT/HCPCS: 73221

== ENCOUNTER 2025-04-15 11:53 | Day surgery (SDC) | payer OTHER, SELFPAY ==
--- NOTE | 2025-04-15 09:12 | W.PM.DSUDISC ---
Date of service: 04/15/25 Discharge Plan Disposition Patient Disposition: Home Condition: Good Discharge Details Reason For Visit: Excision cyst L wrist Attending Provider: Judd Nance Primary Care Provider: Marlee Win Home Meds and New Rx's Prescriptions: New hydrocodone-acetaminophen 5-325 mg tablet 1 tab PO Q6H PRN (Reason: pain) Qty: 4 0RF acetaminophen 500 mg tablet 500 mg PO TID Qty: 90 0RF ibuprofen 600 mg tablet 600 mg PO TID PRN (Reason: pain) Qty: 90 0RF Continued albuterol sulfate [Ventolin HFA] 90 mcg/actuation HFA aerosol inhaler 2 puff inhalation QID PRN (Reason: shortness of breath or wheezing) Qty: 8.5 0RF (DME) Aerovent Plus Spacer See Rx Instructions .Route Qty: 10 0RF Rx Instructions: As directed montelukast [Singulair] 10 mg tablet 10 mg PO DAILY Qty: 30 2RF [id number] acid [ Multi] 1 tab PO DAILY tirzepatide 12.5 mg/0.5 mL pen injector 12.5 mg subcut QWEEK Qty: 2 0RF Rx Instructions: FILL WITH ZEPBOUND.PATIENT IS NOT DIABETIC. Discontinued ibuprofen 200 mg capsule 600 mg PO Q6H PRN Discharge Instructions Additional Instructions: Wrist Cyst Excision Discharge Instructions Activity: You should keep the hand/wrist elevated as much as possible for the first few days. You may use your fingers as tolerated but avoid trying to do too much too soon. You may perform light activities with the splint in place. Dressing/Cast: Your splint should stay in place at all times. Do NOT get it wet. You may loosen the SHELLY wrap if you feel it is too tight and then rewrap more loosely. Medications: - You should take Tylenol and Ibuprofen for baseline pain control. - You have been prescribed a stronger pain medication, hydrocodone, for breakthrough pain. - You may apply ice over the wrist, just double bag so it doesn't get wet. Follow-up: 10-14 days Stand Alone Forms: Anesthesia Discharge Inst., Tuyet Schilling ([facility]) Referrals: Judd Nance MD [ [facility] STAFF PHYSICIAN, Orthopaedic Surgical] - 04/24/25 8:00 am Equipment/Supplies: Splint Remove Dressings/Wound Care:: Do Not Remove Shower/Bathe:: Cover Diet:: As Tolerated Discharge Orders Discharge Orders: Discharge Order (Routine); Ordered 04/15/25 Ordered By: Marcello Grubbs DS: Diagnosis Discharge Diagnosis (1) Ganglion cyst of dorsum of left wrist: Status: Acute
[2025-04-15 12:13] VITALS: BP 114/79; PULSE 88; RESP 18; TEMP 36.5; O2SAT 100
--- NOTE | 2025-04-15 12:19 | W.ANESPRE ---
General Info Date of Service Date Performed: 04/15/25 Height: 5 ft 3.75 in Weight: 60.7 kg Body Mass Index (BMI): 23.1 Surgical Procedure: Operation Date: 04/15/25 14:10 Proposed Procedure Side Surgeon p Wrist Dorsal Cyst Excision Left Judd Nance MD Actual Procedure Side Surgeon p Wrist Dorsal Cyst Excision Left Judd Nance MD Pre-Op Diagnosis Post-Op Diagnosis Excision cyst L wrist Meds Allergies and Home Medications Allergies Allergy/AdvReac Type Severity Reaction Status Date / Time No Known Allergies Allergy Verified 04/15/25 12:12 Home Medication ?Medication ?Instructions ?Recorded [id number] acid 1 tab PO DAILY 04/29/24 albuterol sulfate 90 mcg/actuation 2 puff inhalation QID PRN 02/11/25 aerosol inhaler (Ventolin HFA) shortness of breath or wheezing #8.5 grams inhalational spacing device #10 ea 02/11/25 (Aerovent Plus spacer) montelukast 10 mg tablet 10 mg PO DAILY asthma #30 tabs 02/11/25 (Singulair) tirzepatide 12.5 mg/0.5 mL 12.5 mg (0.5 mL) subcut QWEEK #2 mL 02/27/25 subcutaneous pen injector acetaminophen 500 mg tablet 500 mg PO TID #90 tabs 04/15/25 hydrocodone 5 mg-acetaminophen 325 1 tab PO Q6H PRN pain #4 tabs 04/15/25 mg tablet ibuprofen 600 mg tablet 600 mg PO TID PRN pain #90 tabs 04/15/25 Current Visit Medications: Current Medications Generic Name Dose Route Start Last Admin Trade Name Freq PRN Reason Stop Dose Admin Acetaminophen 1,000 mg 04/15/25 06:00 Acetaminophen 500 Mg Tab PO 04/15/25 23:59 PREOP ROCIO Acetaminophen 650 mg 04/15/25 09:11 Acetaminophen 325 Mg Tab PO 05/15/25 09:10 Q4H PRN PRN Hydrocodone Bitart/Acetaminophen 0 tab 04/15/25 09:11 Hydrocodone 5/Acetaminophen 325 Tab PO 05/15/25 09:10 Q3H PRN PRN Pain Celecoxib 400 mg 04/15/25 06:00 Celecoxib 200 Mg Cap PO 04/15/25 23:59 PREOP ROCIO Ringer's Solution 1,000 mls @ 80 mls/hr 04/15/25 06:00 IV 04/15/25 23:59 INFUSION ROCIO Cefazolin Sodium/Dextrose 2 gm in 50 mls @ 100 mls/hr 04/15/25 06:00 Ancef Duplex IVPB 04/15/25 23:59 PREOP ROCIO IV Miscellaneous Supplies 1 each 04/15/25 06:00 Iv Access IV 04/15/25 23:59 DIRECTED ROCIO Sodium Chloride 0 ml 04/15/25 06:00 Normal Saline Flush 10 Ml Syr IV 04/15/25 23:59 PRN PRN Sodium Chloride 0 ml 04/15/25 06:00 Normal Saline 10 Ml Vial IJ 04/15/25 23:59 DIRECTED PRN Sterile Water 0 ml 04/15/25 06:00 Water,Injection,Sterile 10 Ml Vial IJ 04/15/25 23:59 DIRECTED PRN PFSH Active Problems Active Problems: Problem Status Onset Code Asthma, mild intermittent Acute J45.20 Extensor tenosynovitis of left wrist Acute M65.932 Ganglion cyst of dorsum of left wrist Acute M67.432 Wrist pain, left Acute M25.532 Preventative health care Acute Z00.00 Adult BMI 34.0-34.9 kg/sq m Acute Z68.34 Obesity (BMI 35.0-39.9 without comorbidity) Acute E66.9 Family planning Acute Z30.09 Dysphagia Acute R13.10 Pain in thoracic spine Acute M54.6 Joint stiffness Acute M25.60 Non-scarring alopecia Acute L65.9 Abnormal MRI of head Acute R93.0 Visual changes Acute H53.9 Migraine headache without aura Acute G43.009 Daily headache Acute R51.9 Paresthesias Acute R20.2 Muscle pain Acute M79.10 Chronic pain Chronic G89.29 Medical History Medical History Atypical chest pain Pt. states she does not recall having chest pain Dyspnea Chronic back pain Scoliosis Restless leg syndrome Foot pain, left Ankle pain, right Arthralgia Myalgia Morning stiffness of joints Fibromyalgia Palpitations Swallowing problem Hair loss Fatigue Headache Microcytosis Surgical History Surgical History H/O foot surgery Tobacco Smoking/Tobacco Use Status: Never Passive smoking exposure: No Alcohol Alcohol Intake: current Alcohol intake frequency: holidays/special occasions only Substance Use Substance use: Rarely Substance use type: marijuana Vital Signs and Lab Results Vital Signs Most Recent Vital Signs in EMR: Most Recent Vital Signs Temp Pulse Resp BP Pulse Ox 36.5 C 88 18 114/79 100 04/15/25 12:13 04/15/25 12:13 04/15/25 12:13 04/15/25 12:13 04/15/25 12:13 Anesthesia Assessment and Plan Anesthesia History Personal History: No History of Anesthesia Complications Family History: No Family History of Anesthesia Complications Exercise Tolerance Exercise Tolerance: Metabolic Equivalents>4 Pertinent Negatives Pertinent Negatives: No Symptoms of GERD, No Major Cardiovascular Symptoms or Complaints and No Major Pulmonary Symptoms or Complaints Cardiac & Pulmonary Exam Cardiac Exam: Normal S1/S2 Heart Sounds Pulmonary Exam: Clear Bilateral Breath Sounds, No cough or Cold and Seasonal Allergies Cardiac and Pulmonary Comment:: Inhaler use approx 2x/week, breathing is good today Implantable Cardiac Device Does patient have a Pacemaker or an ICD?: No Airway Exam Known Difficult Airway: No Mallampati Class: 1 Mouth Opening: Normal (> 3cm) Thyromental Distance: Greater than 3 cm Neck Range of Motion: Full ROM Neck Circumference: Normal Teeth Condition: Normal Dentition ASA Classification ASA Score: ASA 2 Emergency Case?: No NPO Status NPO Status: NPO Clears >2 hours, Solids >8 hours Status Status: Negative HCG Anesthesia Plan Resuscitation Status: Full Code Anesthesia Technique: General Anesthesia Airway Planned: Natural Airway Monitors Used: Standard Monitors
[2025-04-15] MEDS: Acetaminophen 500 MG TAB 1000 MG PO (12:20)
[2025-04-15] MEDS: Celecoxib 200 MG CAP 400 MG PO (12:20)
[2025-04-15 12:25] VITALS: BMI 23.1
[2025-04-15] MEDS: Lactated Ringers 1,000 ML 80 ML IV (12:28)
--- NOTE | 2025-04-15 12:34 | HPE_ITS ---
Assessment and Plan Assessment and plan (1) Ganglion cyst of dorsum of left wrist: Status: Acute Assessment and plan: Brooklynn is a 29-year-old female who has a cyst about the dorsum of the left wrist along with some tenosynovitis of the second compartment extensor tendons. This has been quite bothersome to her and she would like it removed. At the same time, I would perform a synovectomy of the second. I discussed technical details of the surgery. I discussed risk to include bleeding, infection or pain, stiffness, damage to nerves and vessels, damage to muscle and tendons, recurrence. Despite these risk, she elects to proceed. I did also discuss the presentation afterwards to include a brace for the first 7 to 10 days followed by gentle range of motion and as needed bracing. History of Present Illness History of Present Illness Chief Complaint: Left Dorsal Wrist Cyst Narrative: Brooklynn is a 29-year-old female who has a dorsal wrist ganglion cyst as well as tenosynovitis of the second compartment extensor tendons. Please see the previous office note for complete detailed history. This continues to be bothersome to her and she would like to have it removed given failure of other nonoperative options. She denies any new symptoms. No recent illness. Review of Systems All systems reviewed & are unremarkable except as noted in HPI and below PFSH All Active Problems Asthma, mild intermittent (Acute) Extensor tenosynovitis of left wrist (Acute) Ganglion cyst of dorsum of left wrist (Acute) Wrist pain, left (Acute) Preventative health care (Acute) Adult BMI 34.0-34.9 kg/sq m (Acute) Obesity (BMI 35.0-39.9 without comorbidity) (Acute) Family planning (Acute) Dysphagia (Acute) Pain in thoracic spine (Acute) Joint stiffness (Acute) Non-scarring alopecia (Acute) Abnormal MRI of head (Acute) Visual changes (Acute) Migraine headache without aura (Acute) Daily headache (Acute) Paresthesias (Acute) hands L>R, right thigh Muscle pain (Acute) chronic in back Chronic pain (Chronic) Medical History Atypical chest pain Pt. states she does not recall having chest pain Dyspnea Chronic back pain Scoliosis Restless leg syndrome Foot pain, left Ankle pain, right Arthralgia Myalgia Morning stiffness of joints Fibromyalgia Palpitations Swallowing problem Hair loss Fatigue Headache Microcytosis Surgical History H/O foot surgery Family History Father Alcohol use disorder Substance use disorder Mother Anxiety Depression Maternal Grandfather Cancer Paternal Grandfather Cancer Diabetes Social History Smoking/Tobacco Use Status: Never Smoking risk assessment performed?: Yes Alcohol Intake: current Alcohol Intake frequency: holidays/special occasions only Drug use: Rarely Substance use type: marijuana Adopted: No Caregiver/Support person: No Foster care: No Household members: spouse and children Housing: house Number of Children: 3 Communication Needs: None Education Level: high school Do you need help understanding health information?: Never current occupation: Care Coordination Manager Pets and animals: Yes (6 Cats, 1 Dog) Pets and animals: cat(s) and dog(s) Sexually active: Yes Do you think of yourself as: straight/heterosexual Current gender identity: female What is your relationship status?: How often do you talk on the phone with friends or family?: once per week How often do you get together with friends or relatives?: once per week Do you belong to any clubs or organized social groups?: no Panel score (0-1 are the most socially isolated patients): 1 What type of physical activity do you participate in: walking and yoga Duration: 30-45 minutes/day Frequency: 3-4 times per week Gail/Temple: None Special gail needs: No Seatbelt use: always Helmet use: Yes Drive intox or ride w/intox class c truck driver: No Do you feel safe at home: Yes Do you feel safe in your relationship?: Yes Meds Allergies and Home Medications Allergies Allergy/AdvReac Type Severity Reaction Status Date / Time No Known Allergies Allergy Verified 04/15/25 12:12 Home Medications ?Medication ?Instructions ?Recorded ?Confirmed ?Type [id number] 1 tab PO DAILY 04/29/24 04/15/25 History albuterol sulfate 90 mcg/actuation 2 puff inhalation Q ID PRN 02/11/25 04/15/25 Rx aerosol inhaler (Ventolin HFA) shortness of breath or wheezing #8.5 grams inhalational spacing device #10 ea 02/11/25 02/11/25 R x (Aerovent Plus spacer) montelukast 10 mg tablet 10 mg PO DAILY asthma #30 ta bs 02/11/25 04/15/25 Rx (Singulair) tirzepatide 12.5 mg/0.5 mL 12.5 mg (0.5 mL) subcut QWE EK #2 mL 02/27/25 04/10/25 Rx subcutaneous pen injector acetaminophen 500 mg tablet 500 mg PO TID #90 tabs Rx hydrocodone 5 mg-acetaminophen 325 1 tab PO Q6H PRN pa in #4 tabs 04/15/25 Rx mg tablet ibuprofen 600 mg tablet 600 mg PO TID PRN pain #90 t abs 04/15/25 Rx Exam Const General: cooperative, healthy appearing, comfortable and no acute distress Resp Effort & Inspection: normal respiratory effort Auscultation: clear to auscultation bilaterally Cardio Rate: regular rate Rhythm: regular rhythm Extrem Other: Dorsal wrist cyst over the central aspect of the dorsal wrist most notable with the wrist in flexion, measuring approximately 3 cm. Results Last Vital Signs Temp 36.5 C 04/15/25 12:13 Pulse 88 04/15/25 12:13 Resp 18 04/15/25 12:13 BP 114/79 04/15/25 12:13 Pulse Ox 100 04/15/25 12:13
[2025-04-15] MEDS: ceFAZolin 2 GM/50 ML BAG IVPB (12:42)
[2025-04-15] MEDS: Sodium Bicarbonate 50 MEQ/50 ML VIAL (12:52)
[2025-04-15] MEDS: Lidocaine 1% Pres-Free W/EPI 1/200,000 10 ML VIAL (12:52)
[2025-04-15 13:25] VITALS: BP 106/55; PULSE 78; RESP 16; TEMP 36.2; O2SAT 100
--- NOTE | 2025-04-15 13:43 | W.ANESPOSTOP ---
Postoperative Evaluation Date, Time and Location Date Performed: 04/15/25 Time Performed: :25 Patient Location: Day Surgery Unit Vital Signs Most Recent Imported Vital Signs: Most Recent Vital Signs Temp Pulse Resp BP Pulse Ox 36.2 C L 78 16 106/55 L 100 04/15/25 13:25 04/15/25 13:25 04/15/25 13:25 04/15/25 13:04/15/25 13:25 Pain Score Most Recent Pain Score: Most Recent Pain Score Pain Level 0 04/15/25 13:25 Assessment Mental Status: Awake (Alert & Oriented to Patient Baseline) Airway and Respiratory Function: Patent airway with normal (patient baseline) respiratory exam Cardiovascular Function: Hemodynamically Stable Hydration Status: Adequately Hydrated Nausea & Vomiting: No Nausea or Vomiting Pain: Pt. Denies Any Pain Peripheral Nerve Block: Patient did not receive a nerve block
[2025-04-15 13:52] VITALS: BP 94/51; PULSE 73; RESP 16; TEMP 36.4; O2SAT 97
--- NOTE | 2025-04-15 14:35 | W.PM.OP ---
Operative Note Operative Note PRE-OP DIAGNOSIS: Left Ganglion Cyst Excision, Extensor Tenosynovectomy POST-OP DIAGNOSIS: same PROCEDURE: Dorsal Wrist Ganglion Cyst Excision and 2nd Extensor Compartment Tendon Tenosynovectomy - Left SURGEON: Judd Nance ANESTHESIA TYPE: General:No Airway Refer to Anesthesia Record ESTIMATED BLOOD LOSS: 0 PATHOLOGY: none sent TOURNIQUET TIME: 0 COMPLICATIONS: None Patient was transported to: same day Patient's condition: stable Indications: Brooklynn is a 29 year old female who has had symptoms of dorsal wrist pain, associated with extensor tenosynovitis and a dorsal wrist ganglion cyst, confirmed clinical and radiographically. Nonoperative treatment options had been trialed. Given their failure, I offered operative intervention. I reviewed the technical details. I reviewed the risk of the procedure to include bleeding, infection, pain, stiffness, tendon instability, damage to superficial nerves, and recurrence. Despite these risks, the patient elected to proceed. Findings: There was a notable cyst about the dorsum of the wrist adjacent to the extensor carpi radialis brevis. The cyst was removed including the capsule. Tenosynovectomy was performed of the extensor carpi radialis longus and brevis. Procedure Description: Brooklynn was greeted in the preoperative holding area. Name and surgical site were confirmed. The history and physical was completed. The consent was reviewed the patient and signed. Brooklynn was taken back to the operating room. The patient was placed in the supine position and general, uninstrumented airway, anesthesia care was initiated. The side was then prepped with ChloraPrep and draped in a standard fashion after a nonsterile tourniquet was placed high up onto the arm. Prophylactic antibiotics in the form of cefazolin were administered. A timeout was performed for safe surgery. The surgical site was drawn on the skin as a longitudinal incision centered to the radial side of the cyst. The planned surgical field was anesthetized with 0.25% bupivacaine with epinephrine. A 2 cm incision was then made. This is taken out sharply through the skin. Blunt dissection remove any crossing branches of veins or nerves. The prominence of the extensor retinaculum was identified. This was incised with tenotomy scissors. This was taken down all the way to the cyst capsule which was easily identified. Overlying this area was the extensor carpi radialis brevis. It was retracted out of the way. The cyst capsule was then dissected out and excised completely from the dorsal wrist capsule. There is a prominence of bone over the dorsum of the wrist which was adjacent to the cyst origin. Rongeur was utilized to create arthrotomy and dissect the remaining capsular tissue in this region. I then performed a tenosynovectomy of the extensor carpi radialis brevis and longus. There was no significant bleeding. The wound was then thoroughly irrigated. A portion of the retinaculum was closed with a 3-0 Vicryl. The deep tissue was closed with a 3-0 Vicryl. The skin was closed with a running subjective 4-0 Monocryl. Skin glue was applied. The hand was dressed with 4 x 4's, Kerlex and SHELLY wrap and a removable splint. All counts were correct. Patient was transferred back to same day surgery area in stable condition. Date of Procedure: 04/15/25
== END 2025-04-15 14:06 | disposition home or self-care (01) ==
LOC: SUR 11:54
PROVIDERS: PCP Nurse Practitioner Family; Visit Provider Student in an Organized Health Care Education/Training Program
PROC: (CPT 25111; principal; 2025-04-15 14:00)
DX: M67.432 Ganglion, left wrist (principal)
CPT/HCPCS: 25111; J0690; J1100; J2003; J2004; J2250; J2405; J2704